=== PATIENT | female | born 1940 | race Caucasian/White ===

== ENCOUNTER 2016-08-09 12:14 | Outpatient (CLI) | payer MEDICARE, OTHER ==
--- NOTE | 2016-08-09 17:06 | XRAY Report ---
COMPLETE CERVICAL SPINE: 08/09/2016 CLINICAL INDICATION: Persistent neck pain. AP, lateral, oblique, odontoid views of the cervical spine demonstrate moderate degenerative disk and facet disease, with bulky anterior osteophytes, worst at C5-6. There is no evidence of acute fractu re or subluxation. The prevertebral soft tissues are unremarkable. Right worse than left osseous ne ural foraminal narrowing is seen. IMPRESSION: MODERATE DEGENERATIVE DISK AND FACET DISEASE, WITH RIGHT WORSE THAN LEFT OSSEOUS NEURAL FORAMINAL NARROWING. JOB #: [id number] EXT JOB #:[id number]
== END 2016-08-09 12:15 | disposition home or self-care (01) ==
LOC: DI 12:14
PROVIDERS: ATTEND Registered Nurse
DX: M50.30 Other cervical disc degeneration, unspecified cervical region (principal); M47.892 Other spondylosis, cervical region
CPT/HCPCS: 72050

== ENCOUNTER 2016-09-13 08:24 | Outpatient (CLI) | payer MEDICARE, OTHER ==
--- NOTE | 2016-09-13 17:10 | Ultrasound Report ---
THYROID ULTRASOUND: 09/13/2016 CLINICAL INDICATION: Nodules seen on cervical spine MRI. COMPARISON: Report of outside MRI of 08/22/2016. TECHNIQUE: Real-time scanning was performed with market survey representative static images obtained. The right lobe measures 5.0 x 1.7 x 1.7 cm, and the left lobe measures 4.6 x 1.7 x 1.6 cm. In the po sterior left lobe, there is a 1.5 x 1.3 x 1.3 cm hypoechoic, circumscribed nodule with a small amount of vascular flow identified. In the lower right lobe, there is a 0.9 x 0.8 x 0.7 cm predominantly h yperechoic nodule with minimal flow. No adenopathy is seen. IMPRESSION: A 1.5 CM HYPOECHOIC NODULE IN THE POSTERIOR LEFT LOBE, INTERMEDIATE SUSPICION BY CLAIRE CHRISTINA DELINES. FINE NEEDLE ASPIRATION IS RECOMMENDED. JOB #: [id number] EXT JOB #:[id number]
== END 2016-09-13 08:25 | disposition home or self-care (01) ==
LOC: DI 08:24
PROVIDERS: ATTEND Registered Nurse
DX: E04.1 Nontoxic single thyroid nodule (principal)
CPT/HCPCS: 76536

== ENCOUNTER 2017-03-14 15:02 | Outpatient (CLI) | payer MEDICARE, OTHER ==
--- NOTE | 2017-03-15 10:01 | Ultrasound Report ---
DATE OF SERVICE: 03/14/2017 RIGHT LEG VENOUS DUPLEX: 03/14/2017 CLINICAL INDICATION: History of right leg deep venous thrombosis three months ago, three months of anticoagulation, evaluate resolution. Previous right leg venous duplex from [facility] is not available for direct comparison. TECHNIQUE: Real-time sonographic vascular imaging was performed by the field laborer through the right lower extremity utilizing both color flow and Doppler spectral analysis. Multiple sales promotion representative static images were saved for review. FINDINGS: A right lower extremity venous sonogram is performed revealing the common femoral, superficial femoral, profunda femoris, and popliteal veins to be adequately visualized without intraluminal defects. There is normal venous compression, augmentation, phasicity, and spontaneity of venous flow. In the calf, the visualized more cephalad portions of posterior tibial and peroneal veins are grossly compressible, without filling defects. IMPRESSION: NO EVIDENCE OF DEEP VENOUS THROMBOSIS. TD: 03/15/2017 11:00
== END 2017-03-14 15:03 | disposition home or self-care (01) ==
LOC: DI 15:02
PROVIDERS: ATTEND Registered Nurse
DX: I82.401 Acute embolism and thrombosis of unspecified deep veins of right lower extremity (principal); Z79.01 Long term (current) use of anticoagulants

== ENCOUNTER 2017-05-20 09:25 | Outpatient (CLI) | payer MEDICARE, OTHER ==
--- NOTE | 2017-05-22 07:32 | XRAY Report ---
EXAM: RIGHT HAND RADIOGRAPHY, 3 VIEWS EXAM DATE: 05/20/2017 10:35 AM. CLINICAL HISTORY: 76-year-old female with right hand and wrist pain. History of nontoxic goiter. COMPARISON: None. TECHNIQUE: Frontal, lateral and oblique views. FINDINGS: Bones: Unremarkable for age. No fractures or bone lesions. 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 Minor osteoarthritic changes in the ulnar aspect of the carpus as well. Diffuse moderate osteoarthritis through the MCP joints and moderate to severe osteoarthritic changes in the IP joints worst in the IP joint of the thumb and fifth digit PIP and DIP joints. No subluxatio ns or joint effusion. Soft Tissues: Normal. No soft tissue swelling. IMPRESSION: Moderate to severe osteoarthritic changes in the wrist, first CMC joint, MCP and IP joint s as described. No acute process. No lytic or destructive process. [facility] Referring Provider Line: [phone] SITE ID: [id number]
--- NOTE | 2017-05-22 12:59 | Ultrasound Report ---
EXAM: THYROID ULTRASOUND EXAM DATE: 05/20/2017 10:25 AM. CLINICAL HISTORY: Pain in right hand,nontoxic goiter, unspecified. Follow-up thyroid nodule history o f biopsy performed which was inconclusive. COMPARISON: 09/13/2016. TECHNIQUE: Real time sonographic imaging of the thyroid was performed by the events associate. Multiple re presentative static images were saved for review. FINDINGS: THYROID GLAND: Right Lobe: 5.4 x 1.5 x 1.4 cm, volume 5.9 cc. Normal background echotexture. Right Lobe Nodules: 1. Mildly heterogeneous largely isoechoic, 0.9 x 0.8 x 0.7 cm, previously 0.9 x 0.8 x 0.7 cm. Left Lobe: 4.8 x 1.2 x 1.8 cm, volume 5.4 cc. Normal background echotexture. Left Lobe Nodules: 1. Mid inferior hypoechoic, 1.4 x 1.2 x 1.1 cm, previously 1.5 x 1.3 x 1.3 cm. Isthmus: 2-3 cm AP. Isthmic Nodules: None. LYMPH NODES: No adenopathy demonstrated in the central or lateral compartment. OTHER: None. IMPRESSION: 1. Bilateral thyroid nodules the largest in the left lobe measuring 1.4 cm without significant change in sonographic appearance or size compared to 09/13/2016. Management recommendations are based on 2015 [place] [employer] Management Guidelines for A dult Patients with Thyroid Nodules and Differentiated Thyroid Cancer. [facility] Referring Provider Line: [phone] SITE ID: [id number]
== END 2017-05-20 09:26 | disposition home or self-care (01) ==
LOC: DI 09:25
PROVIDERS: ATTEND Registered Nurse
DX: E04.2 Nontoxic multinodular goiter (principal); M19.031 Primary osteoarthritis, right wrist; M18.11 Unilateral primary osteoarthritis of first carpometacarpal joint, right hand; M19.041 Primary osteoarthritis, right hand
CPT/HCPCS: 76536

== ENCOUNTER 2018-06-22 15:25 | Outpatient (CLI) | payer MEDICARE, OTHER ==
--- NOTE | 2018-06-25 09:20 | Ultrasound Report ---
Reason: NONTOXIC SINGLE THYROID NODULE Procedure Date: 06/22/2018 Accession Number: [id number] / [id number] Procedure: US - Head or Neck Soft Tissue CPT Code: FULL RESULT: EXAM: THYROID ULTRASOUND EXAM DATE: 06/22/2018 04:19 PM. CLINICAL HISTORY: Follow-up thyroid nodules. COMPARISON: HEAD OR NECK SOFT TISSUE 05/20/2017 9:32 AM HEAD OR NECK SOFT TISSUE 09/13/2016 8:41 AM. TECHNIQUE: Real time sonographic imaging of the thyroid was performed by the emergency medcl emt. Multiple digital media representative static images were saved for review. FINDINGS: THYROID GLAND: Right Lobe: 3.9 x 1.5 x 1.9 cm, volume 5.8 cc. Mildly heterogeneous background echotexture. Right Lobe Nodules: Heterogeneous isoechoic solid nodule, midportion, 0.9 x 0.7 x 0.8 cm, previously 0.9 x 0.7 x 0.8 cm on 05/20/2017 and 09/13/2016. Left Lobe: 4.2 x 1.2 x 2.1 cm, volume 5.5 cc. Mildly heterogeneous background echotexture. Left Lobe Nodules: Hypoechoic solid nodule, inferior pole, 1.5 x 1.1 x 1.2 cm, previously 1.5 x 1.1 x 1.2 cm on 05/20/2017 and 1.5 x 1.3 x 1.3 cm on 09/13/2016. Isthmus: 0.2 cm AP. Isthmic Nodules: None. LYMPH NODES: No adenopathy demonstrated in the central or lateral compartment. OTHER: None. IMPRESSION: No significant interval change in size or appearance of bilateral thyroid nodules compared to prior exams dated 05/20/2017 and 09/13/2016. The nodule in the inferior left thyroid lobe meets CLAIRE criteria for tissue sampling with FNA, as before. Management recommendations are based on 2015 [place] [employer] Management Guidelines for Adult Patients with Thyroid Nodules and Differentiated Thyroid Cancer. [facility]
== END 2018-06-22 15:26 | disposition home or self-care (01) ==
LOC: DI 15:25
PROVIDERS: ATTEND Registered Nurse
DX: E04.2 Nontoxic multinodular goiter (principal)
CPT/HCPCS: 76536

== ENCOUNTER 2020-09-18 07:18 | Outpatient (CLI) | payer MEDICARE, OTHER ==
[2020-09-18 14:30] LABS: BASOPHILS # (AUTO) 0.1 10^3/uL (0.0-0.1); BASOPHILS % (AUTO) 1.2 %; EOSINOPHILS # (AUTO) 0.3 10^3/uL (0.0-0.7); EOSINOPHILS % (AUTO) 5.8 %; HCT - HEMATOCRIT 43.8 % (37.0-47.0); LYMPHOCYTES # (AUTO) 2.2 10^3/uL (1.5-3.5); LYMPHOCYTES % (AUTO) 37.3 %; MEAN CORPUSCULAR HEMOGLOBIN 30.2 pg (27.0-31.0); MEAN CORPUSCULAR VOLUME 94.6 fL (81.0-99.0); MONOCYTES # (AUTO) 0.5 10^3/uL (0.0-1.0); MONOCYTES % (AUTO) 8.5 %; NEUTROPHILS # (AUTO) 2.8 10^3/uL (1.5-6.6); PLT - PLATELET COUNT 384 10^3/uL (130-450); RED BLOOD COUNT 4.63 10^6/uL (4.20-5.40); RED CELL DISTRIBUTION WIDTH 12.5 % (12.0-15.0); WHITE BLOOD COUNT 5.9 x10^3/uL (4.8-10.8)
[2020-09-18 14:59] LABS: ALBUMIN 3.8 g/dL (3.2-5.5); CALCIUM 9.1 mg/dL (8.5-10.3); PHOSPHORUS 2.9 mg/dL (2.5-4.6); POTASSIUM 3.5 mmol/L (3.5-5.0)
[2020-09-18 15:22] LABS: THYROID STIMULATING HORMONE 1.41 uIU/mL (0.34-5.60)
[2020-09-18 15:26] LABS: FREE T4 (FREE THYROXINE) 1.22 ng/dL (0.58-1.64)
== END 2020-09-18 07:19 | disposition home or self-care (01) ==
LOC: LAB.S 07:18
PROVIDERS: ATTEND Registered Nurse
DX: N18.30 Chronic kidney disease, stage 3 unspecified (principal); E04.2 Nontoxic multinodular goiter; E55.9 Vitamin D deficiency, unspecified
CPT/HCPCS: 36415; 80069; 82306; 84439; 84443; 85025